=== PATIENT | female | born 1980 | race Caucasian/White ===

== ENCOUNTER → 2019-10-31 | Outpatient (CLI) | payer OTHER ==
[2004-09-02 06:09] VITALS: TEMP 98.4
[~2019-10-31] MED LIST: FASTIN30 MG PO; MIRENA52 MG IU; NO HOME MEDICATIONS; PERCOCET 325 MG1 TA2 PO
== END ==
LOC: ZCOL.LAB 15:36
DX: Z20.828 Contact with and (suspected) exposure to other viral communicable diseases (principal)

== ENCOUNTER 2020-09-08 13:07 | Emergency (ER) | payer OTHER ==
[~2020-09-08] VITALS: Ht 170.2 cm; Wt 113.6 kg
[2020-09-08 13:19] VITALS: TEMP 97.9
[2020-09-08 13:30] LABS: COLLECTION METHOD CLEAN CATCH
[2020-09-08 13:39] LABS: MUCOUS Present /lpf; PH 5 (5-8); SQUAMOUS EPITHELIAL 0-2 /hpf; URINE APPEARANCE Clear; URINE BACTERIA None Seen /hpf; URINE BILIRUBIN Negative (NEGATIVE); URINE BLOOD 1+ (NEGATIVE); URINE COLOR Yellow; URINE GLUCOSE Negative (NEGATIVE); URINE KETONE Negative (NEGATIVE); URINE LEUKOCYTE ESTERASE Negative (NEGATIVE); URINE NITRATE Negative (NEGATIVE); URINE PROTEIN(semi-quant) Negative (NEGATIVE); URINE UROBILINOGEN Negative (NEGATIVE)
[2020-09-08 13:43] LABS: BASO % 0.4 % (0.0-2.0); EOS # 0.1 (0.0-0.7); EOS % 1.5 % (0-4.0); GRAN # 5.6 (1.4-6.5); GRAN % 58.5 % (42.2-75.2); HEMATOCRIT 42.8 % (37.0-47.0); LYMPH # 3.2 (1.2-3.4); LYMPH % 33.9 % (20.0-51.0); MEAN CELL VOLUME 78 fl (80.0-100.0); MEAN CORPUSCULAR HEMOGLOBIN 26 pg (27.0-31.0); MEAN CORPUSCULAR HGB CONC 33 g/dl (33.0-37.0); MONO # 0.5 (0.1-0.6); MONO % 5.5 % (1.7-9.3); PLATELET COUNT 335 K/mm3 (130-400); RED BLOOD COUNT 5.47 M/mm3 (4.10-5.30); REDCELL DISTRIBUTION WIDTH-CV 13.7 % (11.5-14.5)
[2020-09-08 13:51] LABS: ALBUMIN 4.1 gm/dL (3.5-5.0); BILIRUBIN,TOTAL 0.3 mg/dL (0.0-1.0); CALCIUM 9.4 mg/dL (8.4-10.2); CREATININE, serum 0.6 (0.52-1.25); POTASSIUM 3.8 mmol/L (3.4-5.0); TOTAL PROTEIN 7.5 gm/dL (6.4-8.2)
[2020-09-08] MEDS ORDERED: PROTONIX 40MG T40 MG PO (16:17)
[2020-09-08] MEDS ORDERED: ZOFRAN 4MG T4 MG/TAB PO (16:17)
[2020-09-08 16:30] VITALS: BP 133/94; PULSE 79
== END 2020-09-08 16:30 | disposition home or self-care (01) ==
LOC: COL.ER 13:07
PROVIDERS: Physician Assistant
DX: I88.0 Nonspecific mesenteric lymphadenitis (principal)
CPT/HCPCS: J2270; J2405; Q9967

== ENCOUNTER → 2020-09-17 | Outpatient (CLI) | payer OTHER ==
[2004-09-02 06:09] VITALS: TEMP 98.4
[~2020-09-17] MED LIST changes: +PROTONIX 40MG T40 MG PO; +ZOFRAN 4MG T4 MG/TAB PO
== END ==
LOC: COL.RAD 11:21
DX: K21.9 Gastro-esophageal reflux disease without esophagitis (principal)
CPT/HCPCS: A9537

== ENCOUNTER 2021-03-22 21:21 | Emergency (ER) | payer OTHER ==
[~2021-03-22] VITALS: Ht 170.2 cm; Wt 118.2 kg
[2021-03-22 21:49] VITALS: TEMP 98.4
[2021-03-22 23:52] VITALS: BP 138/85; PULSE 90
== END 2021-03-22 23:52 | disposition home or self-care (01) ==
LOC: COL.ER 21:21
DX: M79.651 Pain in right thigh (principal)